=== PATIENT | male | born 1985 | race Caucasian/White ===

== ENCOUNTER 2017-03-28 09:49 | Outpatient (CLI) | payer OTHER ==
--- NOTE | 2017-03-28 11:02 | DIAGNOSTIC IMAGING REPORT ---
PROCEDURE: US ABDOMEN ULTRASOUND-LIMITED INDICATION: HEMACHROMOTOSIS TECHNIQUE: Navarro scale and color Doppler sonographic images were obtained of the right upper quadrant. COMPARISON: None. FINDINGS: The liver is normal size and contour. The parenchyma is diffusely echogenic. No mass or biliary dilatation. The gallbladder is normal without stones or sludge. Normal wall thickness at 1.4 mm. No pericholecystic fluid or Erickson's sign. Normal common duct size at 3.7 mm. The visible portion of the pancreas, inferior vena cava, abdominal aorta, and portal vein appear normal with appropriate direction of flow in the portal vein. The right kidney is mildly diminutive measuring 8.9 cm in length. Otherwise normal renal morphology. No free fluid in the right upper quadrant. Spleen size is normal at 10.1 cm. No perisplenic ascites. IMPRESSION: 1. Increased echogenicity throughout the liver without obvious mass or secondary signs of portal hypertension.
== END 2017-03-28 23:00 ==
LOC: US SRH 09:49
DX: E83.119 Hemochromatosis, unspecified (principal)